=== PATIENT | male | born 1980 | race Caucasian/White ===

== ENCOUNTER 2024-05-16 20:50 | Emergency (ER) | payer BC, SELFPAY ==
[2024-05-16 21:10] VITALS: BP 154/97; PULSE 75; RESP 16; TEMP 36.9; O2SAT 99; BMI 34.0
--- NOTE | 2024-05-16 21:20 | CRLHL7_ITS ---
For Patients: As a result of the Century Cures Act, medical imaging exams and procedure reports are released immediately into your electronic medical record. You may view this report before your referring provider. If you have questions, please contact your health care provider. INDICATION: Headache, dizziness. TECHNIQUE: Noncontrast CT of the head with multiplanar reconstruction utilizing bone and soft tissue algorithms. COMPARISON: None available. FINDINGS: No acute intracranial hemorrhage. The garcía-white matter interface is preserved. The ventricles are normal in size. No abnormal extra-axial fluid collection is identified. Normal calvarium and skull base. Unremarkable orbits. Scattered paranasal sinus mucosal thickening with small left maxillary sinus fluid level. IMPRESSION: 1. No acute intracranial abnormality. 2. Scattered paranasal sinus mucosal thickening with small left maxillary fluid level indicating acute sinusitis. Please note that all CT scans at this facility use dose modulation, iterative reconstruction, and/or weight-based dosing when appropriate to reduce radiation dose to as low as reasonably achievable. Dictated by Shane Moy MD @ 05/16/2024 10:21:36 PM (Electronically Signed)
--- NOTE | 2024-05-16 21:21 | ED.HA ---
HPI - Headache General Chief Complaint: Headache/Migraine Stated Complaint: Severe head pain, dizzy, pressure, vision issues Time Seen by Provider: 05/16/24 21:16 History of Present Illness HPI Narrative: Patient is a 43-year-old gentleman who had influenza a last week presents with sinus pressure in both maxillary sinuses and frontal sinuses. He also states that he has a severe headache and change in his vision with blurry vision. He has had no polyuria no polydipsia no polyphasia no stiff neck no cough no fevers no chills no night sweats. He does have an overwhelming sense of malaise. Patient has had no other sick contacts no other symptoms. Related Data Home Medications ?Medication ?Instructions ?Recorded ?Confirmed ibuprofen 200 mg tablet (Advil) 200 mg PO Q6-8H PRN 05/16/24 05/16/24 Allergies Allergy/AdvReac Type Severity Reaction Status Date / Time amoxicillin (From Augmentin) AdvReac Intermediate Vomiting Verified 05/16/24 21:21 clavulanic acid (From AdvReac Intermediate Vomiting Verified 05/16/24 21:21 Augmentin) Review of Systems Status of ROS: Reports: 10 or more systems reviewed and unremarkable except as noted in History and below [facility] Medical History (Updated 05/16/24 @ 22:47 by Cesar Almonte MD) Asthma ?J45.909 - Unspecified asthma, uncomplicated (ICD-10) Hypertension ?I10 - Essential (primary) hypertension (ICD-10) Surgical History (Updated 05/16/24 @ 21:22 by Heidi Manrique RN) [place] teeth extracted ?K08.409 - Partial loss of teeth, unspecified cause, unspecified class (ICD-10) Exam Narrative: Exam Narrative: EXAM GENERAL: Patient appears comfortable and well. EYES: No scleral icterus. ENT: Tympanic membranes and oropharynx normal. THYROID: no thyroid nodules or thyromegaly. LYMPH: No supraclavicular or cervical lymphadenopathy. SKIN: Visible skin seen during exam normal or with benign process only. EXT: No dependent lower extremity pedal edema. HEART: Regular rate and rhythm with no murmurs, rubs, or gallops. LUNGS: Clear to auscultation bilaterally with no crackles or wheezes. ABD: Soft, non tender, non distended. PSYCH: Good eye contact, speech is not pressured. Const: Vital Signs, click to edit/add: Vital Signs - 24 hr 05/16/24 21:10 Temperature 98.4 F Pulse Rate [Right Pulse Oximeter] 75 Respiratory Rate 16 Blood Pressure [Le ft Upper Arm] 154/97 H Pulse Oximetry 99 Oxygen Delivery Me thod Room Air Course Course ED Course: Patient presents with symptoms typical for sinusitis however of concern about his change in vision. I did obtain CT of his head as well as CBC basic metabolic panel. Will follow up based on those results. Vital Signs Vital signs: Initial Vital Signs Temperature 98.4 F 05/16/24 21:10 Temperature Source Temporal Artery Scan 05/16/24 21:10 Pulse Rate 75 05/16/24 21:10 Respiratory Rate 16 05/16/24 21:10 Blood Pressure 154/97 H 05/16/24 21:10 Blood Pressure Mean 116 H 05/16/24 21:10 Blood Pressure Position Sitting 05/16/24 21:10 Pulse Oximetry 99 05/16/24 21:10 Oxygen Delivery Method Room Air 05/16/24 21:10 Vital Signs Temperature 98.4 F 05/16/24 21:10 Pulse Rate 75 05/16/24 21:10 Respiratory Rate 16 05/16/24 21:10 Blood Pressure 154/97 H 05/16/24 21:10 Pulse Oximetry 99 05/16/24 21:10 Oxygen Delivery Method Room Air 05/16/24 21:10 Temperature 98.4 F 05/16/24 21:10 Pulse Rate 75 05/16/24 21:10 Respiratory Rate 16 05/16/24 21:10 Blood Pressure 154/97 H 05/16/24 21:10 Pulse Oximetry 99 05/16/24 21:10 Oxygen Delivery Method Room Air 05/16/24 21:10 MDM - Headache MDM Narrative Medical decision making narrative: Patient is a 43-year-old gentleman who presents with sinus pressure. I was concerned by his change in vision and severity of symptoms. CT of the head shows acute sinusitis. Labs are reassuring. Differential diagnosis includes but not limited to sinusitis brain tumor nasal polyps TIA a migraine headache. This time will treated with Z-Abiodun as directed Neti pot as directed Tylenol Motrin rest fluids. Primary care follow-up as needed. Lab Data Labs: Lab Results 01/02/25 Range/Units 22:00 WBC 5.82 (4.50-11.00) K/uL RBC 4.61 (4.30-5.90) m/uL Hgb 14.7 (13.5-17.5) gm/dL Hct 41.3 (37.0-53.0) % MCV 90 (80-100) fL MCH 32 (26-34) pg MCHC 36 (32-36) gm/dL RDW Coeff of Julia 12.4 (11.5-15.5) % Plt Count 139 L (140-440) K/uL Neut % (Auto) 34.5 L (42.0-72.0) % Lymph % (Auto) 53.6 H (20-44) % Walker % (Auto) 10.5 (0.0-11.0) % Eos % (Auto) 0.9 (0.0-7.0) % Baso % (Auto) 0.2 (0.0-3.0) % Neut # (Auto) 2.00 (1.7-7.0) K/uL Lymph # (Auto) 3.10 H (0.90-2.90) K/uL Walker # (Auto) 0.60 (0.00-0.90) K/UL Eos # (Auto) 0.05 (0.00-0.50) K/uL Baso # (Auto) 0.01 (0.00-0.30) K/uL Abs Immat Gran (auto) 0.02 (0.00-0.30) K/uL Imm/Tot Granulo (auto) 0.3 % Sodium 137 (135-149) mmol/L Potassium 3.3 L (3.6-5.1) mmol/L Chloride 103 (96-114) mmol/L Carbon Dioxide 28 (20-32) mmol/L Anion Gap 6 L (7-15) mEq/L BUN 22 (5-24) mg/dL Creatinine 0.9 (0.5-1.5) mg/dL Estimated Creat Clear 106.92 Estimated GFR 109 ml/min Glucose 123 H (60-115) mg/dL Calcium 8.5 (8.4-10.6) mg/dL Discharge Plan Discharge Clinical Impression: Sinusitis Patient Disposition: Home, Self-Care Condition: Stable Instructions: Sinusitis (ED) Additional Instructions: Z-Abiodun as directed Neti pot as discussed Tylenol Motrin Rest Fluids Activity Level: No Restrictions Discharge Diet: Regular Prescriptions: No Action ibuprofen [Advil] 200 mg tablet 200 mg PO Q6-8H PRN Follow Up/Referrals: Provider,Not a Local [Primary Care Provider] - Stand Alone Forms: [employer] Info Instructions
[2024-05-16 22:05] LABS: Basophils Absolute Auto 0.01 K/uL (0.00-0.30); Basophils Percent Auto 0.2 % (0.0-3.0); Eosinophils Absolute Auto 0.05 K/uL (0.00-0.50); Eosinophils Percent Auto 0.9 % (0.0-7.0); Hematocrit 41.3 % (37.0-53.0); Hemoglobin* 14.7 gm/dL (13.5-17.5); Immature Granulocytes Abs Auto 0.02 K/uL (0.00-0.30); Immature Granulocytes Pct Auto 0.3 %; Lymphocytes Percent Auto 53.6 % (20-44); Mean Corpuscular HGB Conc 36 gm/dL (32-36); Mean Corpuscular Hemoglobin 32 pg (26-34); Mean Corpuscular Volume 90 fL (80-100); Monocytes Percent Auto 10.5 % (0.0-11.0); Neutrophils Percent Auto 34.5 % (42.0-72.0); Platelet Count* 139 K/uL (140-440); RDW Coefficient of Variation % 12.4 % (11.5-15.5); Red Blood Count 4.61 m/uL (4.30-5.90); White Blood Count* 5.82 K/uL (4.50-11.00)
--- OUTSIDE RECORDS SUMMARY | 2024-05-16 22:06 | XMS_ITS | Clinical Summary ---
Author Organization [facility] Address [address] [place] [address] Care Team Providers Care Teaching Music Lessons Name Role Phone Vinny Mckinney MD Primary Care Provider [phone] Vinny Mckinney MD Unavailable Allergies Active Allergy Reactions Criticality Noted Date Comments Amoxicillin-Pot Clavulanate Nausea 12/28/19 18 Medications sertraline (ZOLOFT) 50 MG tabletIndications :GERRY (generalized anxiety disorder) Take 1 tablet (50 mg) by mouth daily 90 tablet 3 2 Active albuterol (VENTOLIN HFA) 108 (90 Base) MCG/ACT inhalerIndication s:Mild persistent asthma with acute exacerbation Inhale 2 puffs into the lungs every 4 hours as needed for shortness of breath or wheezing 56 g 3 3 Active Active Problems Problem Noted Date Diagnosed Date Panic attack 04/11/2017 GERRY (generalized anxiety disorder) 03/13/2017 Mild persistent asthma with acute exacerbation 0 11/17/2016 Right knee pain 06/25/2013 Elevated blood pressure reading 06/25/2013 CARDIOVASCULAR SCREENING; LDL GOAL LESS THAN 160 03/14/2010 Resolved Problems Problem Noted Date Diagnosed Date Resolved Date Ankle pain 08/27/2008 10/28/2008 Achilles bursitis 08/26/2008 10/28/2008 Immunizations Name Administration Dates Next Due COVID-19 MONOVALENT 12+ (Pfizer) 09/11/2020,04/0 01/2021 DT (PEDS <7y) 12/03/1986 Hepatitis B, Peds 03/25/1994,10/20/1993,09/22/18 94 Historic Hib Hib-titer 02/15/1985 Historical DTP/aP 05/30/1983, 2,1981,1981 Influenza (IIV3) PF 04/30/2012 Influenza (prior to 2023) 04/21/2015 Influenza Vaccine >6 months,quad, PF 02/2022,03/25/2019,03/08/2018,2016,02/18/2014 Influenza,INJ,MDCK,PF,Quad >6mo(Flucelvax) 03/11/2020 MMR 09/22/1993,09/10/1982 OPV, trivalent, live 02/23/1998,12/10/18 82,1981,1981 Pneumococcal 23 valent 06/24/2021 TDAP (Adacel,Boostrix) 05/22/2007 TDAP Vaccine (Adacel) 03/08/2018 Td (Adult), Adsorbed 09/13/1996 Family History Medical History Relation Comments Diabetes Mother type 2 Hypertension Mother Relation Status Comments Brother Alive Father Alive Maternal Grandfather Maternal Grandmother Mother Alive Paternal Grandfather Paternal Grandmother Alive Social History Tobacco Use Types Packs/Day Years Used Date Smoking Tobacco: Never Smokeless Tobacco: Never Alcohol Use Standard Drinks/Week Comments Yes 0 (1 standard drink = 0.6 oz pure alcohol) one drink every other day socially PHQ-2 Answer Date Recorded PHQ-2 Score 0 07/09/2020 Adolescent Education Answer Date Record ed Getting School Help Needed Not on file 02/04 Sex and Gender Information Value Date Recorded Sex Assigned at Not on file Legal Sex Male 5:03 AM BEDSPREAD INSPECTOR Gender Identity Not on file Sexual Orientation Not on file Last Filed Vital Signs Vital Sign Reading Time Taken Comments Blood Pressure 129/88 06/24/2021 12:35 PM BEDSPREAD INSPECTOR Pulse 72 06/24/2021 12:35 PM BEDSPREAD INSPECTOR Temperature 36.4 C (97.6 F) 06/24/2021 12:35 PM BEDSPREAD INSPECTOR Respiratory Rate 18 06/24/2021 12:35 PM BEDSPREAD INSPECTOR Oxygen Saturation 99% 06/24/2021 12:35 PM BEDSPREAD INSPECTOR Inhaled Oxygen Concentration - - Weight 107 kg (236 lb) 06/24/2021 12:35 PM BEDSPREAD INSPECTOR Height 175.3 cm (5' 9) 06/24/2021 12:35 PM BEDSPREAD INSPECTOR Body Mass Index 34.85 06/24/2021 12:35 PM BEDSPREAD INSPECTOR Plan of Treatment Health Maintenance Due Date Last Done Comments ADVANCE CARE PLANNING 1981 ANNUAL REVIEW OF HM ORDERS 1981 YEARLY PREVENTIVE VISIT 1984 ASTHMA CONTROL TEST 12/22/2021 06/24/2021, 07/09/2020, 12/28/2018, Additional history exists ASTHMA ACTION PLAN 06/24/2022 06/24/2021, 1 , 11/17/2016, Additional history exists Pneumococcal Vaccine: Pediatrics (0 to 5 Years) and At-Risk Patients (6 to 49 Years) (2 of 2 - PCV) 06/24/2022 06/24/2021 PHQ-2 (once per calendar year) 2023 07/09/2020, 12/28/2018, 07/10/2018, Additional history exists LIPID 12/29/2023 12/28/2018 COVID-19 Vaccine ( season) 2024 04/05/2021, 09/11/2020, 08/21/2020 INFLUENZA VACCINE (#1) 2024 , 03/11/2020, 03/25/2019, Additional history exists GLUCOSE 06/24/2024 06/24/2021, 12/28/2018 DTAP/TDAP/TD IMMUNIZATION (8 - Td or Tdap) 03/08/2028 03/08/2018, 05/22/2007, 09/13/1996, Additional history exists RSV VACCINE (1 - 1-dose 75+ series) 2056 HEPATITIS B IMMUNIZATION Completed 994, 10/20/1993, 09/22/1993 HEPATITIS C SCREENING Completed 06/24/2021 HIV SCREENING Completed 06/24/2021 HPV IMMUNIZATION Aged Out No longer e ligible based on patient's age to complete this topic MENINGITIS IMMUNIZATION Aged Out No l onger eligible based on patient's age to complete this topic RSV MONOCLONAL ANTIBODY Aged Out No l onger eligible based on patient's age to complete this topic Procedures Procedure Name Priority Date/Time Associated Diagnosis Comments GLUCOSE Routine 06/24/2021 1:34 PM BEDSPREAD INSPECTOR Class 1 obesity due to excess calories with body mass index (BMI) of 34.0 to 34.9 in adult, unspecified whether serious comorbidity present HIV ANTIGEN ANTIBODY COMBO Routine 06/24/2021 1:34 PM BEDSPREAD INSPECTOR Screening for HIV (human immunodeficiency virus) HEPATITIS C SCREEN REFLEX TO HCV RNA QUANT AND GENOTYPE Routine 06/24/2021 1:34 PM BEDSPREAD INSPECTOR Encounter for hepatitis C screening test for low risk patient ASTHMA ACTION PLAN Routine 06/24/2021 1:16 PM BEDSPREAD INSPECTOR LIPID REFLEX TO DIRECT LDL PANEL Routine 12/28/2018 10:32 AM CDT Lipid screening from Last 3 Months or Most Recently Relevant to Health Maintenance Results * HIV Antigen Antibody Combo (06/24/2021 1:34 PM BEDSPREAD INSPECTOR) HIV Antigen Antibody Combo Nonreactive Nonreactive 06/24/2021 7:30 PM BEDSPREAD INSPECTOR [facility] Comment:HIV-1 p24 Ag & HIV-1 /HIV-2 Ab Not Detected Blood BLOOD SPECIMEN / Unknown Venipuncture / Unknown 06/24/2021 1:34 PM BEDSPREAD INSPECTOR 06/24/2021 1:34 PM BEDSPREAD INSPECTOR Vinny Mckinney MD LAB - BLOOD ORDERABLES Final Res ult [facility]Prot[facility]Endo [address] [facility] [address] [facility], Room [address] [place] [address] * Hepatitis C Screen Reflex to HCV RNA Quant and Genotype (06/24/2021 1:34 PM BEDSPREAD INSPECTOR) Hepatitis C Antibody Nonreactive Nonreactive 06/24/2021 7:30 PM BEDSPREAD INSPECTOR SPECIALTY CORE/PROT/EN DO Blood BLOOD SPECIMEN / Unknown Venipuncture / Unknown 06/24/2021 1:34 PM BEDSPREAD INSPECTOR 06/24/2021 1:34 PM BEDSPREAD INSPECTOR Narrative [facility] - 06/24/2021 7:30 PM BEDSPREAD INSPECTOR Assay performance characteristics have not been established for newborns, infants, and children. us Vinny Mckinney MD LAB - BLOOD ORDERABLES Final Res ult [facility]Prot/Endo [address] [facility] [address] Building, [address] [place] [address], [facility] [phone] * Glucose (06/24/2021 1:34 PM BEDSPREAD INSPECTOR) Glucose 87 70 - 99 mg/dL 06/25/2021 9:27 AM BEDSPREAD INSPECTOR [facility]ATORY Patient Fasting > 8hrs? Unknown 06/25/2021 9:27 AM BEDSPREAD INSPECTOR [facility]ATORY Blood BLOOD SPECIMEN / Unknown Venipuncture / Unknown 06/24/2021 1:34 PM BEDSPREAD INSPECTOR 06/24/2021 1:34 PM BEDSPREAD INSPECTOR Vinny Mckinney MD LAB - BLOOD ORDERABLES Final Res ult OX LABORATORY [facility] [address] Lab (no room number, 1st floor of clinic) [place] [address], [facility] [phone] * (ABNORMAL) Lipid panel reflex to direct LDL Fasting (12/28/2018 10:32 AM CDT) Cholesterol 201(H) <200 mg/dL 12/29/2018 8:[address] [facility] Comment:Desirable: <200 mg/d l Triglycerides 238(H) <150 mg/dL 12/29/2018 8:[address] [facility] Comment: Borderline high: 150-199 mg/dl High: 200-499 mg/dl Very high: >499 mg/dl Fasting specimen HDL Cholesterol 32(L) >39 mg/dL 9 9:[address] [facility] LDL Cholesterol Calculated 121(H) <100 mg/dL 12/29/2018 9:[address] [facility] Comment: Above desirable: 100-129 mg/dl Borderline High: 130-159 mg/dL High: 160-189 mg/dL Very high: >189 mg/dl Non HDL Cholesterol 169(H) <130 mg/dL 12/29/2018 9:[address] [facility] Comment: Above Desirable: 130-159 mg/dl Borderline high: 160-189 mg/dl High: 190-219 mg/dl Very high: >219 mg/dl Blood specimen (specimen) 12/28/2018 10:32 AM CDT 12/28/2018 10:33 AM CDT Vinny Mckinney MD LAB - BLOOD ORDERABLES Final Res ult [facility] [address] [place] [address] from Last 3 Months or Most Recently Relevant to Health Maintenance Insurance BCBS OUT OF STATE Care Teams Teaching Music Lessons Relationship Specialty [place] [address] [place] [address] PCP - General Family Practice 11/17/16 [place] [address] [place] [address] Assigned PCP 11/20/16
--- OUTSIDE RECORDS SUMMARY | 2024-05-16 22:06 | XMS_ITS | Referral Summary ---
Author Organization [facility] Address [address] [place] [address] Care Team Providers Care Oil Prospecting Observer Name Role Phone Vinny Mckinney MD Primary Care Provider [phone] Vinny Mckinney MD Unavailable Allergies Active Allergy [...] Vaccine (Adacel) 03/08/2018 Td (Adult), Adsorbed 09/13/1996 Social History Tobacco Use Types Packs/Day Years [...] on file Legal Sex Male 5:03 AM BATTER OUT Gender Identity Not on file Sexual Orientation Not on file Last Filed Vital Signs Vital Sign Reading Time Taken Comments Blood Pressure 129/88 06/24/2021 12:35 PM BATTER OUT Pulse 72 06/24/2021 12:35 PM BATTER OUT Temperature 36.4 C (97.6 F) 06/24/2021 12:35 PM BATTER OUT Respiratory Rate 18 06/24/2021 12:35 PM BATTER OUT Oxygen Saturation 99% 06/24/2021 12:35 PM BATTER OUT Inhaled Oxygen Concentration - - Weight 107 kg (236 lb) 06/24/2021 12:35 PM BATTER OUT Height 175.3 cm (5' 9) 06/24/2021 12:35 PM BATTER OUT Body Mass Index 34.85 06/24/2021 12:35 PM BATTER OUT Plan of Treatment Not on file Procedures Procedure Name Priority Date/Time Associated Diagnosis Comments GLUCOSE Routine 06/24/2021 1:34 PM BATTER OUT Class 1 obesity due to excess calories with body mass index (BMI) of 34.0 to 34.9 in adult, unspecified whether serious comorbidity present HIV ANTIGEN ANTIBODY COMBO Routine 06/24/2021 1:34 PM BATTER OUT Screening for HIV (human immunodeficiency virus) HEPATITIS C SCREEN REFLEX TO HCV RNA QUANT AND GENOTYPE Routine 06/24/2021 1:34 PM BATTER OUT Encounter for hepatitis C screening test for low risk patient ASTHMA ACTION PLAN Routine 06/24/2021 1:16 PM BATTER OUT LIPID REFLEX TO DIRECT LDL PANEL Routine 12/28/2018 10:32 AM CDT Lipid screening from Last 3 Months or Most Recently Relevant to Health Maintenance Results * HIV Antigen Antibody Combo (06/24/2021 1:34 PM BATTER OUT) HIV Antigen Antibody Combo Nonreactive Nonreactive 06/24/2021 7:30 PM BATTER OUT [facility] Comment:HIV-1 p24 Ag & HIV-1 /HIV-2 Ab Not Detected Blood BLOOD SPECIMEN / Unknown Venipuncture / Unknown 06/24/2021 1:34 PM BATTER OUT 06/24/2021 1:34 PM BATTER OUT Vinny Mckinney MD LAB - BLOOD ORDERABLES Final Res ult [facility]Prot[facility]Endo [address] [facility] [address] Building, [address] [place] [address], [facility] [phone] * Hepatitis C Screen Reflex to HCV RNA Quant and Genotype (06/24/2021 1:34 PM BATTER OUT) Hepatitis C Antibody Nonreactive Nonreactive 06/24/2021 7:30 PM BATTER OUT [facility] DO Blood BLOOD SPECIMEN / Unknown Venipuncture / Unknown 06/24/2021 1:34 PM BATTER OUT 06/24/2021 1:34 PM BATTER OUT Narrative [facility] - 06/24/2021 7:30 PM BATTER OUT Assay performance characteristics have not been established for newborns, infants, and children. us Vinny Mckinney MD LAB - BLOOD ORDERABLES Final Res ult [facility]Endo [address] [facility], [address] [phone] * Glucose (06/24/2021 1:34 PM BATTER OUT) Glucose 87 70 - 99 mg/dL 06/25/2021 9:27 AM BATTER OUT [facility] LAB[facility]ATORY Patient Fasting > 8hrs? Unknown 06/25/2021 9:27 AM BATTER OUT [facility] Blood BLOOD SPECIMEN / Unknown Venipuncture / Unknown 06/24/2021 1:34 PM BATTER OUT 06/24/2021 1:34 PM BATTER OUT Vinny Mckinney MD LAB - BLOOD ORDERABLES Final Res ult OX [facility] [address] (no room number, 1st floor of clinic) [place] [address], [facility] [phone] * (ABNORMAL) Lipid panel reflex to direct LDL Fasting (12/28/2018 10:32 AM CDT) Cholesterol 201(H) <200 mg/dL 12/29/2018 8:56 AM CDT [facility] Comment:Desirable: <200 mg/d l Triglycerides 238(H) <150 mg/dL 12/29/2018 8:57 AM T [facility] Comment: Borderline high: 150-199 mg/dl High: 200-499 mg/dl Very high: >499 mg/dl Fasting specimen HDL Cholesterol 32(L) >39 mg/dL 9 9:05 AM CDT [facility] LDL Cholesterol Calculated 121(H) <100 mg/dL 12/29/2018 9:05 AM CDT [facility] Comment: Above desirable: 100-129 mg/dl Borderline High: 130-159 mg/dL High: 160-189 mg/dL Very high: >189 mg/dl Non HDL Cholesterol 169(H) <130 mg/dL 12/29/2018 9:05 AM CDT [facility] Comment: Above Desirable: 130-159 mg/dl Borderline high: 160-189 mg/dl High: 190-219 mg/dl Very high: >219 mg/dl Blood specimen (specimen) 12/28/2018 10:32 AM CDT 12/28/2018 10:33 AM CDT us Vinny Mckinney MD LAB - BLOOD ORDERABLES Final Res ult [facility] [address] [place] [address] from Last 3 Months or Most Recently Relevant to Health Maintenance Insurance BCBS OUT OF STATE Care Teams Oil Prospecting Observer Relationship Specialty [place] [address] [place] [address] PCP - General Family Practice 11/17/16 [place] [address] [place] [address] Assigned PCP 11/20/16
--- OUTSIDE RECORDS SUMMARY | 2024-05-16 22:06 | XMS_ITS | Encounter Summary ---
Author Organization [facility] Address [address] [place] [address] Care Team Providers Care Certified Cytotechnologist Name Role Phone Vinny Mckinney MD Primary Care Provider [phone] Vniny Mckinney MD Unavailable Encounter Details Date Type Department Care Team (Late st Contact Info) Description 09/12/2020 Documentation Only INTERFACED REPORT Unknown, Provider Social History Tobacco Use Types Packs/Day Years Used Date Smoking Tobacco: Never Smokeless Tobacco: Never Alcohol Use Standard Drinks/Week Comments Yes 0 (1 standard drink = 0.6 oz pure alcohol) one drink every other day socially PHQ-2 Answer Date Recorded PHQ-2 Score 0 07/09/2020 Sex and Gender Information Value Date Recorded Sex Assigned at Not on file Legal Sex Male 5:03 AM AIR TWIST OPERATOR Gender Identity Not on file Sexual Orientation Not on file documented as of this encounter Plan of Treatment Not on file documented as of this encounter Visit Diagnoses Not on filedocumented in this encounter Care Teams Certified Cytotechnologist Relationship Specialty [place] [address] [place] [address] PCP - General Family Practice 11/17/16 [place] [address] [place] [address] Assigned PCP 11/20/16 documented as of this encounter
--- OUTSIDE RECORDS SUMMARY | 2024-05-16 22:06 | XMS_ITS | Encounter Summary ---
Author Organization [facility] Address [address] [place] [address] Care Team Providers Care School Teacher Name Role Phone Vinny Mckinney MD Primary Care Provider [phone] Vinny Mckinney MD Unavailable Encounter Details Date Type Department Care Team (Late st Contact Info) Description 08/22/2020 Documentation Only INTERFACED REPORT Unknown, Provider Social [...] on file Legal Sex Male 5:03 AM GAS SINGER Gender Identity Not on file Sexual Orientation Not on file documented as of this encounter Plan of Treatment Not on file documented as of this encounter Visit Diagnoses Not on filedocumented in this encounter Care Teams School Teacher Relationship Specialty Start [place] [address] [place] [address] PCP - General Family Practice 11/17/16 [place] [address] [place] [address] Assigned PCP 11/20/16 documented as of this encounter
--- OUTSIDE RECORDS SUMMARY | 2024-05-16 22:06 | XMS_ITS | Encounter Summary ---
Author Organization [facility] Address [address] [place] [address]. [place] [address] Care Team Providers Care Mail Processor Name Role Phone Vinny Mckinney MD Primary Care Provider [phone] Vinny Mckinney MD Unavailable Reason for Visit * Reason Onset Date Comments Patient Request 06/15/2021 Encounter Details Date Type Department Care Team (Late st Contact Info) Description 06/15/2021 [facility] [address] [phone] Vinny Mckinney MD [address] [place] [id number] Patient Request Social History Tobacco Use Types Packs/Day Years Used Date Smoking Tobacco: Never Smokeless Tobacco: Never Alcohol Use Standard Drinks/Week Comments Yes 0 (1 standard drink = 0.6 oz pure alcohol) one drink every other day socially PHQ-2 Answer Date Recorded PHQ-2 Score 0 07/09/2020 Sex and Gender Information Value Date Recorded Sex Assigned at Not on file Legal Sex Male 5:03 AM RADIOLOGICAL ENGINEER Gender Identity Not on file Sexual Orientation Not on file documented as of this encounter Miscellaneous Notes * Telephone Encounter - Penny Montana RN - 06/15/2021 9:[address] Mckinney- see T[employer] Card message below. Please advise. Penny Montana RN OLOGICAL ENGINEER documented in this encounter Plan of Treatment Not on file documented as of this encounter Visit Diagnoses Not on filedocumented in this encounter Care Teams Mail Processor Relationship Specialty [place] [address] [place] [address] PCP - General Family Practice 11/17/16 [place] [address] [place] [address] Assigned PCP 11/20/16 documented as of this encounter
--- OUTSIDE RECORDS SUMMARY | 2024-05-16 22:06 | XMS_ITS | Clinical Summary ---
Author Organization [facility] Address [place], [place] [address] Care Team Providers Care Master Mechanic Name Role Phone Vinny Mckinney MD Primary Care Provider [phone] Allergies Active Allergy Reactions Criticality Noted Date Comments Amoxicillin-Pot Clavulanate Nausea And Vomiting Medium 12/27/2017 Medications benzonatate (TESSALON) 100 mg capsule Take 1 capsule by mouth 3 times daily if needed for cough. 18 capsule 06/20/2015 10:34 AM DIRECTOR OF TEACHING AND LEARNING 06/20/2015 Active codeine-guaiFEN esin (ROBITUSSIN AC) 10-100 mg/5 mL liquid Take 10 mL by mouth every 6 hours if needed for cough 150 mL 06/20/2015 10:34 AM DIRECTOR OF TEACHING AND LEARNING 06/20/2015 Active metaxalone (SKELAXIN) 400 mg tabIndications: Low back strain, initial encounter Take 2 tablets by mouth 3 times daily. 30 tablet 02/10/2019 Active HYDROcodone-siis taminophen, 5-325 mg, (NORCO) per tabletIndicatio ns:Low back strain, initial encounter Take 1-2 tablets by mouth every 4 hours if needed for Pain 20 tablet 02/10/2019 Active codeine-guaiFEN esin (ROBITUSSIN AC) 10-100 mg/5 mL liquidIndicatio ns:Bronchitis Take 5 mL by mouth every 4 hours if needed for Cough. Max dose 60 mL per 24 hrs. 100 mL 05/05/2019 Active albuterol HFA (PRO-AIR; VENTOLIN; PROVENTIL) 90 mcg/actuation inhaler Inhale 2 Puffs by mouth every 4 hours if needed. 01/26/2023 Active predniSONE (DELTASONE) 20 mg tabletIndicatio ns:Subacute cough Take 2 Tablets (40 mg) by mouth once daily for 5 days. 10 Tablet 05/12/2024 5 Active Encounters Date Type Department Care Team Description 05/12/2024 6:11 PM DIRECTOR OF TEACHING AND LEARNING - 05/12/2024 7:39 PM DIRECTOR OF TEACHING AND LEARNING Emergency [facility] [address] [place] [address] Yessi maldonado, CHILO Alvarado Subacute cough (Primary Dx); Elevated blood pressure reading Discharge Disposition: Home Self Care from Last 3 Months Social History Tobacco Use Types Packs/Day Years Used Date Smoking Tobacco: Never Smokeless Tobacco: Never Sex and Gender Information Value Date Recorded Sex Assigned at Not on file Legal Sex Male 10:19 AM DIRECTOR OF TEACHING AND LEARNING Gender Identity Not on file Sexual Orientation Not on file Obstetrics History Last Filed Vital Signs Vital Sign Reading Time Taken Comments Blood Pressure 155/103 05/12/2024 6:32 PM DIRECTOR OF TEACHING AND LEARNING Pulse 74 05/12/2024 6:32 PM DIRECTOR OF TEACHING AND LEARNING Temperature 36.7 C (98 F) 05/12/2024 6:32 PM DIRECTOR OF TEACHING AND LEARNING Respiratory Rate 16 05/12/2024 6:32 PM DIRECTOR OF TEACHING AND LEARNING Oxygen Saturation 99% 05/12/2024 6:32 PM DIRECTOR OF TEACHING AND LEARNING Inhaled Oxygen Concentration - - Weight 104.3 kg (230 lb) 05/12/2024 6:32 PM DIRECTOR OF TEACHING AND LEARNING Height 175.3 cm (5' 9) 05/23/2022 2:00 PM DIRECTOR OF TEACHING AND LEARNING Body Mass Index 33.97 05/23/2022 2:00 PM DIRECTOR OF TEACHING AND LEARNING Plan of Treatment Health Maintenance Due Date Last Done Comments Tdap 1992 Depression screening for age 12+ 1993 HIV for age 15-65 1996 BMI (ht and wt on same day) for age 18+ 1999 Hepatitis C screening for ag e 18-79 1999 Tetanus booster 2001 Lipids for age 35-44 2016 COVID-19 vaccine series ( season) 2024 04/05/2021, 09/11/2020, 08/21/2020 Influenza for age 9-49 01/14/2024 Pneumococcal series for age 6-49 Aged Out No longer eligible b ased on patient's age to complete this topic Procedures Procedure Name Priority Date/Time Associated Diagnosis Comments XR CHEST 2 VIEWS PA AND LATERAL STAT 05/12/2024 6:31 PM DIRECTOR OF TEACHING AND LEARNING from Last 3 Months Results * XR CHEST 2 VIEWS PA AND LATERAL (05/12/2024 6:31 PM DIRECTOR OF TEACHING AND LEARNING) Anatomical Region Laterality Modality CHEST, THORAX, Lung, HEART Compu taylor Radiography 05/12/2024 6:31 PM DIRECTOR OF TEACHING AND LEARNING Impressions 05/12/2024 7:23 PM DIRECTOR OF TEACHING AND LEARNING Negative chest. Narrative 05/12/2024 7:23 PM DIRECTOR OF TEACHING AND LEARNING For Patients: As a result of the Cures Act, medical imaging exams and procedure reports are released immediately into your electronic medical record. You may view this report before your referring provider. If you have questions, please contact your health care provider. EXAM: XR CHEST 2 VIEWS PA AND LATERAL LOCATION: [facility] [place] DATE: 05/12/2024 INDICATION: Cough COMPARISON: Chest radiograph 05/23/2022 Procedure Note Nasim Currie MD - 05/12/2024 For Patients: As a result of the Cures Act, medical imagingexams and procedure reports are released immediately into your electronicmedical record. You may view this report before your referring provider.If you have questions, please contact your health care provider. EXAM: XR CHEST 2 VIEWS PA AND LATERAL LOCATION: [facility] [place] DATE: 05/12/2024 INDICATION: Cough COMPARISON: Chest radiograph 05/23/2022 IMPRESSION: Negative chest. Lv Ferraro MD GENERAL IMAGING Final Re sult from Last 3 Months Insurance [facility] Care Teams Master Mechanic Relationship Specialty [place] [address] [place] [address] PCP - General Family Practice 12/25/17
[2024-05-16 22:07] LABS: Slide Review Reflex No
[2024-05-16 22:17] LABS: Chloride* 103 mmol/L (96-114); Potassium* 3.3 mmol/L (3.6-5.1); Sodium* 137 mmol/L (135-149)
[2024-05-16 22:20] LABS: Anion Gap 6 mEq/L (7-15); Blood Urea Nitrogen* 22 mg/dL (5-24); Carbon Dioxide* 28 mmol/L (20-32); Creatinine* 0.9 mg/dL (0.5-1.5); Est. Creatinine Clearance* 106.92; Estimated Glomerular Filt Rate 109 ml/min
[2024-05-16 22:21] LABS: Calcium* 8.5 mg/dL (8.4-10.6); Glucose* 123 mg/dL (60-115)
== END 2024-05-16 22:56 | disposition home or self-care (01) ==
PROVIDERS: Emergency Provider Internal Medicine
DX: J01.90 Acute sinusitis, unspecified (principal)
CPT/HCPCS: 36415; 70450; 80048; 85025; 99283; 99284